=== PATIENT | male | born 1945 | race American Indian/Alaskan Native ===

== ENCOUNTER 2017-04-15 14:10 | Emergency (ER) | payer MEDICARE ==
[2017-04-15 14:57] LABS: Basophils % (Auto) 0.7 % (0.0-1.8); Eosinophils # (Auto) 0.1 K/mm3 (0.0-0.4); Eosinophils % (Auto) 1.5 % (0.0-4.3); Hematocrit 40.5 % (35.5-45.6); Hemoglobin 13.2 gm/dl (11.8-15.2); Lymphocytes # (Auto) 1.5 K/mm3 (1.2-5.4); Lymphocytes % (Auto) 30.8 % (13.4-35.0); Mean Corpuscular HGB Conc 33 % (32-34); Mean Corpuscular Hemoglobin 26 pg (28-32); Mean Corpuscular Volume 80 fl (84-94); Monocytes # (Auto) 0.3 K/mm3 (0.0-0.8); Monocytes % (Auto) 7.1 % (0.0-7.3); Platelet Count 246 K/mm3 (140-440); Red Blood Count 5.09 M/mm3 (3.65-5.03); Red Cell Distribution Width 15.6 % (13.2-15.2)
[2017-04-15 15:22] LABS: BUN/Creatinine Ratio 16; Blood Urea Nitrogen 13 mg/dL (9-20); Calcium 9.2 mg/dL (8.4-10.2); Hemolysis Index 4
--- NOTE | 2017-04-15 18:48 | Emergency Department Report ---
ED General Adult HPI - General Chief complaint: Abdominal Pain Stated complaint: DIFFICULTY SWALLOWING Time Seen by Provider: 04/15/17 17:03 Source: family, EMS Mode of arrival: Stretcher Limitations: Other - History of Present Illness Initial comments: Patient has had both problems for over a year. His states that it has been discussed with all of his providers and none of them are doing anything. -: Gradual, year(s) (1) Location: abdomen Improves with: none Worsens with: none Associated Symptoms: other (tremors, involuntary) - Related Data Home Medications Medication Instructions Recorded Confirmed Last Taken Allopurinol [Zyloprim] 100 mg PO BID PRN 12/01/14 12/02/14 12/01/14 Aspirin EC [Aspirin Enteric Coated 325 mg PO QDAY 12/01/14 12/02/14 12/01/14 TAB] Baclofen [Lioresal] 5 mg PO Q8H 12/01/14 12/02/14 12/01/14 Colchicine [Mitigare] 0.6 mg PO QDAY PRN 12/01/14 12/02/14 12/01/14 Esomeprazole Magnesium [NexIUM] 40 mg PO QDAY 12/01/14 12/02/14 12/01/14 Galantamine HBr [Razadyne] 8 mg PO BID 12/01/14 12/01/14 Unknown Lisinopril [Zestril TAB] 40 mg PO BID 12/01/14 12/02/14 12/01/14 Memantine HCl [Namenda Xr] 28 mg PO QDAY 12/01/14 12/02/14 12/02/14 Nebivolol HCl [Bystolic] 10 mg PO QDAY 12/01/14 12/02/14 12/02/14 Ranitidine HCl [Zantac 150 MG TAB] 150 mg PO QDAY PRN 12/01/14 12/02/14 12/01/14 Sertraline [Zoloft] 50 mg PO QDAY 12/01/14 12/02/14 12/01/14 Simvastatin [Zocor TAB] 10 mg PO QHS 12/01/14 12/02/14 12/01/14 amLODIPine [Norvasc] 10 mg PO DAILY 12/01/14 12/02/14 12/01/14 levETIRAcetam [Keppra TAB] 500 mg PO BID 12/01/14 12/02/14 12/02/14 metFORMIN [Glucophage] 500 mg PO BID 12/01/14 12/02/14 12/01/14 Allergies Allergy/AdvReac Type Severity Reaction Status Date / Time No Known Allergies Allergy Unverified 12/01/14 10:34 ED Review of Systems ROS: Stated complaint: DIFFICULTY SWALLOWING Other details as noted in HPI Comment: All other systems reviewed and negative Constitutional: denies: chills, fever Eyes: denies: eye pain, eye discharge, vision change ENT: denies: ear pain, throat pain Respiratory: denies: cough, shortness of breath, wheezing Cardiovascular: denies: chest pain, palpitations Endocrine: no symptoms reported Gastrointestinal: as per HPI. denies: nausea, diarrhea Genitourinary: denies: urgency, dysuria Musculoskeletal: denies: back pain, joint swelling, arthralgia Skin: denies: rash, lesions Neurological: confusion, other (tremors). 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) Additional Surgical History: Colostomy bag LLQ - Social History Smoking Status: Never Smoker - Medications Home Medications: Home Medications Medication Instructions Recorded Confirmed Last Taken Type Allopurinol [Zyloprim] 100 mg PO BID PRN 12/01/14 12/02/14 12/01/14 History Aspirin EC [Aspirin Enteric Coated 325 mg PO QDAY 12/01/14 12/02/14 12/01/14 History TAB] Baclofen [Lioresal] 5 mg PO Q8H 12/01/14 12/02/14 12/01/14 History Colchicine [Mitigare] 0.6 mg PO QDAY PRN 12/01/14 12/02/14 12/01/14 History Esomeprazole Magnesium [NexIUM] 40 mg PO QDAY 12/01/14 12/02/1415 History Galantamine HBr [Razadyne] 8 mg PO BID 12/01/14 12/01/14 Unknown History Lisinopril [Zestril TAB] 40 mg PO BID 12/01/14 12/02/14 12/01/14 History Memantine HCl [Namenda Xr] 28 mg PO QDAY 12/01/14 12/02/14 12/02/14 History Nebivolol HCl [Bystolic] 10 mg PO QDAY 12/01/14 12/02/14 12/02/14 History Ranitidine HCl [Zantac 150 MG TAB] 150 mg PO QDAY PRN 12/01/14 12/02/14 History Sertraline [Zoloft] 50 mg PO QDAY 12/01/14 12/02/14 12/01/14 History Simvastatin [Zocor TAB] 10 mg PO QHS 12/01/14 12/02/14 12/01/14 History amLODIPine [Norvasc] 10 mg PO DAILY 12/01/14 12/02/14 12/01/14 History levETIRAcetam [Keppra TAB] 500 mg PO BID 12/01/14 12/02/14 12/02/14 History metFORMIN [Glucophage] 500 mg PO BID 12/01/14 12/02/14 12/01/14 History ED Physical Exam - General Limitations: Language Barrier, Other General appearance: alert, in no apparent distress - Head Head exam: Present: atraumatic, normocephalic - Eye Eye exam: Present: normal appearance - ENT ENT exam: Present: mucous membranes moist - Neck Neck exam: Present: normal inspection - Respiratory Respiratory exam: Present: normal lung sounds bilaterally. Absent: respiratory distress - Cardiovascular Cardiovascular Exam: Present: regular rate, normal rhythm. Absent: systolic murmur, diastolic murmur, rubs, gallop - GI/Abdominal GI/Abdominal exam: Present: soft, normal bowel sounds. Absent: tenderness - Rectal Rectal exam: Present: deferred - Extremities Exam Extremities exam: Present: normal inspection - Back Exam Back exam: Present: normal inspection - Neurological Exam Neurological exam: Present: alert, other (unable to assess secondary to patient' s mental status) - Psychiatric Psychiatric exam: Present: normal affect, normal mood - Skin Skin exam: Present: warm, dry, intact, normal color. Absent: rash ED Course Vital Signs 04/15/17 04/15/17 04/15/17 14:19 14:24 14:31 Temperature 100 F H Pulse Rate 58 L 59 L Respiratory 12 13 Rate Blood Pressure 199/99 189/90 O2 Sat by Pulse 100 100 Oximetry 04/15/17 04/15/17 04/15/17 14:45 15:01 15:17 Temperature Pulse Rate 60 Respiratory Rate Blood Pressure 210/73 202/89 O2 Sat by Pulse 100 100 100 Oximetry 04/15/17 04/15/17 15:31 15:45 Temperature Pulse Rate 60 61 Respiratory 15 15 Rate Blood Pressure 174/93 174/93 O2 Sat by Pulse 87 Oximetry ED Medical Decision Making - Lab Data Result diagrams: 04/15/17 14:47 04/15/17 14:47 Critical care attestation.: If time is entered above; I have spent that time in minutes in the direct care of this critically ill patient, excluding procedure time. ED Disposition Clinical Impression: Tremors of nervous system, Abdominal pain, Dementia Disposition: -01 TO HOME OR SELFCARE Is pt being admited?: No Condition: Stable Instructions: Abdominal Pain (ED) Referrals: PRIMARY CARE, [Primary Care Provider] - 3-5 Days
[2017-04-15 19:33] VITALS: BP 137/98
== END 2017-04-15 19:33 | disposition home or self-care (01) ==
LOC: ED 14:10
DX: G25.2 Other specified forms of tremor (principal); R10.9 Unspecified abdominal pain; F03.90 Unspecified dementia, unspecified severity, without behavioral disturbance, psychotic disturbance, mood disturbance, and anxiety; I10 Essential (primary) hypertension; E11.9 Type 2 diabetes mellitus without complications; K21.9 Gastro-esophageal reflux disease without esophagitis; R56.9 Unspecified convulsions; C18.9 Malignant neoplasm of colon, unspecified; Z90.49 Acquired absence of other specified parts of digestive tract
CPT/HCPCS: 36415; 80048; 85025; 99284